=== PATIENT | female | born 1960 | race Caucasian/White ===

== ENCOUNTER → 2016-09-15 | Outpatient (CLI) | payer OTHER | LOC: RAD 10:24 | PROVIDERS: ATTEND Family Medicine | DX: Z12.31 Encounter for screening mammogram for malignant neoplasm of breast (principal); D17.1 Benign lipomatous neoplasm of skin and subcutaneous tissue of trunk | CPT/HCPCS: 73218; G0202 ==

== ENCOUNTER 2016-11-09 07:31 | Day surgery (SDC) | payer OTHER ==
[2016-11-09] VITALS (7 sets, daily range): BP systolic 95–123; BP diastolic 60–69
[~2016-11-09] VITALS: Ht 160 cm; Wt 100.0 kg
[~2016-11-09 07:31] MED LIST: AZIT250T81 PO; LACTATED RINGERS 1,000 ML IV SCH; LIDOCAINE/EPINEPHRINE 1%-1:100,000 (XYLOCAINE) 20ML VIAL ONE; SODIUM CHLORIDE FLUSH 3 ML SYR IV PRN
[2016-11-09] MEDS ORDERED: POTA10TA10 PO (08:00)
[2016-11-09] MEDS ORDERED: LEVO50TA6 PO (08:00)
[2016-11-09] MEDS ORDERED: HYDROXYSUT PO (08:00)
[2016-11-09] MEDS ORDERED: OLME1TAB40 PO (08:00)
[2016-11-09] MEDS ORDERED: GLUC-165 PO (08:02)
[2016-11-09] MEDS ORDERED: OMEG300C3 PO (08:02)
[2016-11-09] MEDS ORDERED: CALC600T12 PO (08:02)
[2016-11-09] MEDS ORDERED: MULT-954 PO (08:02)
[2016-11-09] MEDS ORDERED: MAGN250T7 PO (08:02)
[2016-11-09] MEDS ORDERED: VITA1TAB17 PO (08:02)
[2016-11-09] MEDS ORDERED: MIDAZOLAM 2 MG/2 ML (VERSED) VIAL ONE (08:43)
[2016-11-09] MEDS ORDERED: PROPOFOL 20 ML IV ONE (08:43)
[2016-11-09] MEDS ORDERED: ALFENTANIL 500 MCG/ML (ALFENTA) 5 ML AMP IV ONE ×4 (08:44)
[2016-11-09] MEDS ORDERED: ONDANSETRON 2 MG/ML (Z0FRAN) 2 ML VIAL IV PRN (10:20)
--- NOTE | 2016-11-10 10:24 | OPERATIVE REPORT ---
DATE OF OPERATION: November 09, 2016 PRE-OPERATIVE DIAGNOSIS: Lipoma of left upper back. POST-OPERATIVE DIAGNOSIS: Same. OPERATIVE PROCEDURE: Excision of lipoma. SURGEON: Luciano Quiñones MD [employer] REPRESENTATIVE: Savi Hernandez ANESTHESIA: Monitored anesthesia care with local. INDICATION: The patient is a 56-year-old referred by Dr. Antonio with enlarged lipoma medial to the superior aspect of her left scapula. She presents today for resection. DESCRIPTION OF PROCEDURE: The patient was informed of the risks and benefits and agreed to proceed. She was placed in the prone position on the operating table and administered IV sedation. When properly sedated the skin over the area was prepped and draped in standard sterile fashion and she was placed in slight reverse in the downward position 1%lidocaine with epinephrine was injected in the skin over the lipoma and a 15-blade scalpel used to incise the skin, cautery was used to incise the underlying adipose tissue, and gentle blunt dissection was then undertaken to expose the lipoma beneath the superficial fat. The lipoma was from its attachments to the surrounding fatty tissue and to the underlying muscular fascia, and lifted off of the muscle and block and removed it measured about 7 to 8 cm in diameter. A small portion of residual fatty tissue was removed to be sure that the lipoma was completely excised and once this was apparent hemostasis was completed with eletrocautery. The subcutaneous tissue was reapproximated with interrupted 3-O Vicryl and the skin was closed with subcuticular 4-O Monocryl the dressing was applied. The patient tolerated the procedure without complications.
== END 2016-11-09 12:24 | disposition home or self-care (01) ==
LOC: ASC 07:31
PROVIDERS: ATTEND Surgery
DX: D17.1 Benign lipomatous neoplasm of skin and subcutaneous tissue of trunk (principal); I10 Essential (primary) hypertension; E03.9 Hypothyroidism, unspecified; K90.0 Celiac disease
CPT/HCPCS: 21931; 36415; 84132; J2250; J7120